=== PATIENT | male | born 1980 ===

== ENCOUNTER 2017-01-30 11:18 | Emergency (ER) | payer OTHER ==
[2017-01-30 11:45] VITALS: BP 127/78; PULSE 83; RESP 20; TEMP 98.8
[2017-01-30 11:51] VITALS: O2SAT 98
--- NOTE | 2017-01-30 12:13 | ED PDOC ---
HPI: Skin/Bite Injury Time Seen by Provider: 01/30/17 11:35 Chief Complaint (Nursing): Abnormal Skin Integrity History Per: Patient, [employer] ([employer] #[id number]) Additional Complaint(s): Pt. states for the past 2 years he's had a progressively worsening whitening of the skin on his face and hands. Pt. states his father has a hx of vitiligo. Also states that he has yet to seek medical attention for this until today. Denies fever, pruritus. Past Medical History Reviewed: Historical Data, Nursing Documentation, Vital Signs Vital Signs: Last Vital Signs Temp 98.8 F 01/30/17 11:44 Pulse 83 01/30/17 11:44 Resp 20 01/30/17 11:44 BP 127/78 01/30/17 11:44 Pulse Ox 98 01/30/17 11:49 - Family History Family History: States: No Known Family Hx - Allergies Allergies/Adverse Reactions: Allergies Allergy/AdvReac Type Severity Reaction Status Date / Time No Known Allergies Allergy Verified 01/30/17 11:48 Review of Systems ROS Statement: Except As Marked, All Systems Reviewed And Found Negative Skin: Positive for: Rash Physical Exam - Physical Exam Appears: Positive for: Well, Non-toxic, No Acute Distress Skin: Positive for: Normal Color, Warm, Rash (scattered hypopigmented patches on R lower eyelid, b/l lower lips, b/l hands, and L elbow) - ECG O2 Sat by Pulse Oximetry: 98 - Progress ED Course And Treament: Pt. instructed to f/u with [facility] for further evaluation. Disposition - Clinical Impression Clinical Impression: Vitiligo - Patient ED Disposition Is Patient to be Admitted: No - Disposition Referrals: [facility] [Outside] Disposition: Routine/Home Disposition Time: 12:14 Condition: STABLE Instructions: Acute Rash (ED) Print Language: SINHALA
== END 2017-01-30 12:42 | disposition home or self-care (01) ==
LOC: H.ER 11:18
DX: L80 Vitiligo (principal)